=== PATIENT | female | born 1990 | race African-American/Black ===

== ENCOUNTER 2021-10-14 20:31 | Emergency (ER) | payer MEDICAID ==
[~2021-10-14] VITALS: Ht 167.6 cm; Wt 71.0 kg
[2021-10-14 20:51] VITALS: BP 158/90
[2021-10-14] MEDS ORDERED: LIDOCAINE 5% PATCH TOP SCH (21:00)
[2021-10-14] MEDS ORDERED: ACETAMINOPHEN 325MG TABLET PO ONE (21:00)
[2021-10-14] MEDS ORDERED: LIDO1ADH5 TP (22:51)
[2021-10-14] MEDS ORDERED: TOPUD PO (22:52)
[2021-10-14] MEDS ORDERED: IBUP-2028 MT (22:52)
== END 2021-10-14 23:20 | disposition home or self-care (01) ==
LOC: ER 20:31
DX: S00.212A Abrasion of left eyelid and periocular area, initial encounter (principal); V49.49XA Driver injured in collision with other motor vehicles in traffic accident, initial encounter; Y93.89 Activity, other specified; Y92.89 Other specified places as the place of occurrence of the external cause; Y99.8 Other external cause status
CPT/HCPCS: 71046; 73502; 81025; 99284